=== PATIENT | male | born 1975 | race Caucasian/White ===

== ENCOUNTER 2016-04-12 12:05 | Emergency (ER) | payer OTHER ==
[2016-04-12 12:25] VITALS: BP 140/79; PULSE 74; RESP 16; TEMP 98.2; O2SAT 96
--- NOTE | 2016-04-12 13:56 | UCPHY ---
H & P Time Seen by Provider: 04/12/16 13:14 Patient Type: New HPI/ROS: HPI Left knee injury. 40-year-old male by private vehicle. Patient was walking his dog. He got caught up in his draw lesion, tripped and fell flush on his left anterior lateral knee. He suffered an abrasion to the anterior lateral aspect of the knee. He reports he has some swelling to the knee. He is able to ambulate on it. No other injury or complaints. He reports that the knee get stiff when he flexes the knee. ROS: Constitutional: No fever, no chills. No weakness. Musculoskeletal: No back pain. No neck pain. As above. No other extremity pain. Skin: No rashes. Left knee abrasion as above. Neurological: No headache. No focal weakness or altered sensation. Past medical history: No significant past medical history. Social history: Here by himself. Nonsmoker. Physical Exam: General Appearance: Alert, no distress. This patient is responding to questions appropriately and in full sentences. This patient appears well- hydrated and well-nourished. Eyes: Pupils equal and round no pallor or injection. No lid edema, erythema or injection. Left knee exam: Superficial abrasion to the anterior lateral aspect of the left knee below the patella. He does have a moderate suprapatellar effusion. The left knee is stable to anterior and posterior drawer testing and valgus and varus stress testing. No lacerations. The left lower extremity is neurovascularly intact. Neurological: Motor sensory function is grossly intact. Cranial nerves are normal. Gait is normal. Skin: Warm and dry, no rashes. Musculoskeletal: Neck is supple and nontender. Extremities are symmetrical. All joints range without pain or impingement except noted. Psychiatric: No agitation. No depression. Database: EKG: Imaging: Left knee x-ray series: Negative for fracture, subluxation, dislocation. Moderate suprapatellar joint effusion. Interpreted by me. Procedures: Emergency department course: Results of left knee x-ray discussed with the patient. Mechanism of injury suggests contusion only. He does have a small effusion. He is able to ambulate on the knee. I offered him a knee immobilizer/brace. He did not feel this was necessary and he declined. Plan will be to have him follow up with his primary care physician for re-evaluation in 2-3 days. Orthopedic referral as needed. I discussed high-dose ibuprofen to be taken over the next several days. Return to Urgent Care precautions reviewed. All of his questions were answered. He was discharged in good condition. Differential Diagnosis: The differential diagnosis on this patient includes but is not limited to left knee contusion, left knee sprain. Fracture, subluxation, dislocation of the left knee unlikely. This represents a partial list of diagnoses considered. These considerations are based on history, physical exam, past history, reassessment and diagnostic testing. Smoking Status: Never smoked Constitutional: Initial Vital Signs Temperature (C) 36.8 C 04/12/16 12:22 Heart Rate 74 04/12/16 12:22 Respiratory Rate 16 04/12/16 12:22 Blood Pressure 140/79 H 04/12/16 12:22 O2 Sat (%) 96 04/12/16 12:22 O2 Delivery Mode Room Air Allergies/Adverse Reactions: No Known Allergies Allergy (Verified 04/12/16 12:21) Home Medications: Medication Instructions Recorded Lisinopril/Hctz 20/12.5MG 1 ea PO DAILY 08/18/11 [Zestoretic/Prinzide 20/12.5MG (RX)] Ibuprofen [Motrin (*)] 800 mg PO Q6-8PRN #30 tab 12/25/15 Departure - Departure Disposition: Home, Routine, Self-Care Clinical Impression: Contusion of left knee Condition: Good Instructions: Contusion in Adults (ED), Swollen Knee Joint (ED) Additional Instructions: Read and follow provided instructions. Follow-up with your primary care physician in 2-3 days for re-evaluation and orthopedic consultation as needed. Ibuprofen dosin mg every 6 hours with meals for the next 3 days only. Weight-bearing as tolerated only on the left knee. Return to the emergency department for worsening pain, swelling, discoloration or other serious concerns. Referrals: [facility] [Other] - As per Instructions - PQRS PQRS Measurement: Not applicable.
== END 2016-04-12 14:10 | disposition home or self-care (01) ==
LOC: CED 12:05
DX: S80.02XA Contusion of left knee, initial encounter (principal); W19.XXXA Unspecified fall, initial encounter; Y93.K1 Activity, walking an animal
CPT/HCPCS: 73564-PO; 99203-PO; G0463-PO